=== PATIENT | female | born 1970 | race Caucasian/White ===

== ENCOUNTER 2016-09-26 22:56 | Observation (INO) | payer OTHER ==
[~2016-09-26] VITALS: Ht 154.9 cm; Wt 55.9 kg
[~2016-09-26 22:56] MED LIST: CIPRODEX OTIC7.5 ML BOTH EARS; CYANOCOBALAM1000 MCG PO; FOLIC ACID1 MG PO; LISINOPRIL5 MG PO; PANTOPRAZOLE SO40 MG PO; TESSALON PERLE100 MG PO; TRAMADOL HCL50 MG PO; TYLENOL REGULA325 MG PO; WARFARIN SODIUM2 MG PO; WARFARIN SODIUM5 MG PO
[2016-09-26 23:36] LABS: HEMATOCRIT 38.5 % (36.0-46.0); MCH 31.4 PG (29.0-34.0); MCHC 34.3 G/DL (30.0-36.0); MCV 91.7 FL (83-99); MEAN PLAT.VOLUME 12.3 uM^3 (9.5-12.4); PLATELET COUNT 120 K/uL (156-360); RBC DIS.WIDTH-CV 13.9 % (11.8-14.6); RBC DIS.WIDTH-SD 46.7 % (39-53); WHITE BLOOD COUNT 10.3 K/uL (4.1-10.2)
[2016-09-26 23:45] LABS: CHLORIDE 107 mEq/L (99-109); POTASSIUM 3.2 mEq/L (3.7-5.4); SODIUM 137 mEq/L (136-147)
[2016-09-26 23:46] LABS: GLUCOSE 102 mg/dL (70-99)
[2016-09-26 23:48] LABS: ANION GAP 8 MEQ/L (2-14)
[2016-09-26 23:50] LABS: GFR ESTIMATE (CALCULATED) > 59 mL/min/
[2016-09-27 02:22] LABS: UREA NITROGEN (BUN) 10 mg/dL (9-23)
[2016-09-27 06:10] VITALS: BP 158/86
[2016-09-27 07:17] VITALS: BP 176/105
[2016-09-27 10:47] LABS: INTER. NORMALIZED RATIO 3.2; PROTHROMBIN TIME 33.5 (9.2-11.2)
[2016-09-27 11:25] VITALS: BP 136/86
[2016-09-27] MEDS ORDERED: PROTONIX40 MG PO (15:07)
[2016-09-27 15:38] VITALS: BP 125/70
[2016-09-27 18:56] VITALS: BP 146/89
[2016-09-28 04:20] VITALS: BP 123/74
[2016-09-28 06:34] LABS: INTER. NORMALIZED RATIO 2.6; PROTHROMBIN TIME 26.9 (9.2-11.2)
[2016-09-28 07:19] VITALS: BP 119/67
[2016-09-28 11:30] VITALS: BP 134/72
[2016-09-28] MEDS ORDERED: FIORICET,ESG1 TABLET PO (15:39)
[2016-09-28] MEDS ORDERED: BACLOFEN10 MG PO (15:39)
== END 2016-09-28 16:23 | disposition home or self-care (01) ==
LOC: EME 22:56 → EDOF 09-27 04:00 → 5WEST 09-27 05:29
PROVIDERS: Internal Medicine
DX: G45.9 Transient cerebral ischemic attack, unspecified (principal); I69.351 Hemiplegia and hemiparesis following cerebral infarction affecting right dominant side; I69.328 Other speech and language deficits following cerebral infarction; I10 Essential (primary) hypertension; G43.909 Migraine, unspecified, not intractable, without status migrainosus; Z79.01 Long term (current) use of anticoagulants; F17.200 Nicotine dependence, unspecified, uncomplicated; M79.641 Pain in right hand; R51 Headache
CPT/HCPCS: 70450; 70551; 71020; 80048; 85027; 85610; 93005; 93880; 99281; 99285; G0378; G8978 GP CI; G8979 GP CH; J3010; J7030

== ENCOUNTER 2017-07-02 15:43 | Inpatient (IN) | payer OTHER ==
[~2017-07-02] VITALS: Ht 157.5 cm; Wt 53.0 kg
[~2017-07-02 15:43] MED LIST changes: +BACLOFEN10 MG PO; +FIORICET,ESG1 TABLET PO; +PROTONIX40 MG PO
[2017-07-02 17:11] LABS: HEMATOCRIT 24.1 % (36.0-46.0); HEMOGLOBIN 8.2 G/DL (11.9-15.5); MCH 32.4 PG (29.0-34.0); MCV 95.3 FL (83-99); PLATELET COUNT 58 K/uL (156-360); RBC DIS.WIDTH-CV 13.9 % (11.8-14.6); RBC DIS.WIDTH-SD 48.3 % (39-53); RED BLOOD COUNT 2.53 M/uL (3.80-5.20); WHITE BLOOD COUNT 8.6 K/uL (4.1-10.2)
[2017-07-02] MEDS ORDERED: XARELTO20 MG PO (17:16)
[2017-07-02 17:21] LABS: ALBUMIN 3.4 g/dL (3.2-4.8)
[2017-07-02 17:22] LABS: CHLORIDE 106 mEq/L (99-109); POTASSIUM 3.5 mEq/L (3.7-5.4); SODIUM 138 mEq/L (136-147)
[2017-07-02 17:24] LABS: GLUCOSE 95 mg/dL (70-99); TOTAL PROTEIN 6.6 g/dL (6.4-8.3)
[2017-07-02 17:26] LABS: TOTAL BILIRUBIN 0.4 mg/dL (0.0-1.0)
[2017-07-02 17:27] LABS: ALKALINE PHOSPHATASE 99 IU/L (3-129)
[2017-07-02 17:28] LABS: CREATININE 2.6 mg/dL (0.6-1.3)
[2017-07-02 17:29] LABS: AST (GOT) 19 IU/L (2-34); GFR ESTIMATE (CALCULATED) 21 mL/min/; UREA NITROGEN (BUN) 23 mg/dL (9-23)
[2017-07-02 17:31] LABS: ALT (GPT) 3 IU/L (3-49)
[2017-07-02 17:41] LABS: QUANTITATIVE HCG < 4.0 MIU/ML
[2017-07-02 17:50] LABS: APPEARANCE SL.HAZY ((CLEAR)); BILIRUBIN NEGATIVE; BLOOD LARGE; COLOR AMBER ((YELLOW)); GLUCOSE (STRIP) NEGATIVE; KETONES 5; LEUKOCYTES NEGATIVE; NITRITE NEGATIVE; PROTEIN (STRIP) >=500; SPECIFIC GRAVITY 1.019 (1.000-1.030); UROBILINOGEN 0.2 MG/DL (0.2-1.0)
[2017-07-02 17:54] LABS: INTER. NORMALIZED RATIO 1.4
[2017-07-02 17:57] LABS: PTT 77.7 SEC (25-37)
[2017-07-02 18:12] LABS: RED BLOOD CELLS TNTC /HPF (0-5); UCUL ADDED? YES
[2017-07-02] MEDS ORDERED: ADVIL200 MG PO (19:11)
[2017-07-02] MEDS ORDERED: TYLENOL EXTRA500 MG PO (19:11)
[2017-07-02] MEDS ORDERED: FOLIC ACID1 MG PO (19:11)
[2017-07-02 21:47] VITALS: BP 169/88
[2017-07-03] VITALS (9 sets, daily range): BP systolic 127–157; BP diastolic 69–95
[2017-07-03 06:44] LABS: HEMATOCRIT 20.6 % (36.0-46.0); MCH 32.1 PG (29.0-34.0); MCV 97.2 FL (83-99); RBC DIS.WIDTH-CV 13.9 % (11.8-14.6); RED BLOOD COUNT 2.12 M/uL (3.80-5.20)
[2017-07-03 06:45] LABS: HEMOGLOBIN 6.8 G/DL (11.9-15.5)
[2017-07-03 06:47] LABS: IMM.PLATELET FRACTION 13.4 (1-7); PLATELET COUNT 50 K/uL (156-360)
[2017-07-04] VITALS (18 sets, daily range): BP systolic 110–166; BP diastolic 70–92
[2017-07-04 01:09] LABS: ABS NEUTROPHIL COUNT 7.2; ANISOCYTOSIS 1+; BASOPHILS 0.9 %; EOSINOPHIL ABS CT 0.1; EOSINOPHILS 0.9 % (0-5.0); HELMET CELLS 1+; LYMPHOCYTES 12.6 % (15.0-45.0); MONOCYTES 1.8 % (0-9.0); PLAT.SUFFICIENCY DECREASED; POIKILOCYTOSIS 2+; POLYCHROMASIA 1+; SCHISTOCYTES 1+; SEG.NEUTROPHILS 83.8 % (46.0-76.0); TEAR DROP CELLS 1+
[2017-07-04 07:42] LABS: HEMATOCRIT 23.4 % (36.0-46.0); MCH 31.5 PG (29.0-34.0); MCHC 34.2 G/DL (30.0-36.0); RBC DIS.WIDTH-CV 15.1 % (11.8-14.6); RBC DIS.WIDTH-SD 51.1 % (39-53); RED BLOOD COUNT 2.54 M/uL (3.80-5.20); WHITE BLOOD COUNT 5.4 K/uL (4.1-10.2)
[2017-07-04 07:45] LABS: MCV 92.1 FL (83-99)
[2017-07-04 08:14] LABS: PLAT.SUFFICIENCY DECREASED; PLATELET COUNT 41 K/uL (156-360)
[2017-07-04 08:28] LABS: CHLORIDE 113 MEQ/L (99-109); CREATININE 2.4 MG/DL (0.6-1.3); GFR ESTIMATE (CALCULATED) 23 mL/min/; LACTATE DEHYDROGENASE 197 IU/L (20-246); SODIUM 139 MEQ/L (136-147); UREA NITROGEN (BUN) 16 mg/dL (9-23)
[2017-07-04 08:33] LABS: GLUCOSE 337 mg/dL (70-99)
[2017-07-04 08:47] LABS: FOLIC ACID (FOLATE) > 22.0 NG/ML (5.0-22.0)
[2017-07-05 03:38] VITALS: BP 151/85
[2017-07-05 08:35] VITALS: BP 155/81
[2017-07-05 10:51] LABS: BASOPHIL (%) 0.4 % (0-1); EOSINOPHIL (%) 1.7 % (0-5); EOSINOPHIL COUNT 0.1 K/uL (0-0.3); HEMOGLOBIN 8.3 G/DL (11.9-15.5); IMMATURE GRANULOCYTE (%) 0.2 % (0.0-0.7); LYMPHOCYTE (%) 20.9 % (15-42); MCH 31.3 PG (29.0-34.0); MCHC 34.6 G/DL (30.0-36.0); MCV 90.6 FL (83-99); MONOCYTE (%) 5.3 % (3-12); MONOCYTE COUNT 0.3 K/uL (0-0.8); NEUTROPHIL (%) 71.5 % (45-76); NEUTROPHIL COUNT 3.4 K/uL (1.8-6.4); RBC DIS.WIDTH-CV 15.2 % (11.8-14.6); RBC DIS.WIDTH-SD 49.8 % (39-53); RED BLOOD COUNT 2.65 M/uL (3.80-5.20); WHITE BLOOD COUNT 4.7 K/uL (4.1-10.2)
[2017-07-05 10:59] LABS: INTER. NORMALIZED RATIO 1.1
[2017-07-05 11:24] LABS: IMM.PLATELET FRACTION 10.1 (1-7); PLAT.SUFFICIENCY DECREASED; PLATELET COUNT 49 K/uL (156-360)
[2017-07-05 11:29] LABS: CHLORIDE 114 MEQ/L (99-109); POTASSIUM 3.5 MEQ/L (3.7-5.4); SODIUM 142 MEQ/L (136-147)
[2017-07-05 12:14] LABS: CREATININE 2.5 MG/DL (0.6-1.3); GFR ESTIMATE (CALCULATED) 22 mL/min/; GLUCOSE 81 mg/dL (70-99); UREA NITROGEN (BUN) 15 mg/dL (9-23)
[2017-07-05 15:58] VITALS: BP 146/81
[2017-07-05 19:44] VITALS: BP 148/95
[2017-07-05 23:36] VITALS: BP 158/82
[2017-07-06 06:56] LABS: INTER. NORMALIZED RATIO 1.2
[2017-07-06 06:59] LABS: BASOPHIL (%) 0.6 % (0-1); EOSINOPHIL (%) 2.1 % (0-5); EOSINOPHIL COUNT 0.1 K/uL (0-0.3); HEMATOCRIT 24.5 % (36.0-46.0); HEMOGLOBIN 8.2 G/DL (11.9-15.5); IMMATURE GRANULOCYTE (%) 0.4 % (0.0-0.7); LYMPHOCYTE (%) 19.7 % (15-42); MCH 31.1 PG (29.0-34.0); MCHC 33.5 G/DL (30.0-36.0); MCV 92.8 FL (83-99); MONOCYTE (%) 4.7 % (3-12); MONOCYTE COUNT 0.3 K/uL (0-0.8); NEUTROPHIL (%) 72.5 % (45-76); NEUTROPHIL COUNT 3.8 K/uL (1.8-6.4); PLATELET COUNT 51 K/uL (156-360); RBC DIS.WIDTH-CV 15.2 % (11.8-14.6); RBC DIS.WIDTH-SD 51.7 % (39-53); RED BLOOD COUNT 2.64 M/uL (3.80-5.20); WHITE BLOOD COUNT 5.3 K/uL (4.1-10.2)
[2017-07-06 07:20] LABS: CHLORIDE 119 MEQ/L (99-109); CREATININE 2.7 MG/DL (0.6-1.3); GFR ESTIMATE (CALCULATED) 20 mL/min/; GLUCOSE 100 mg/dL (70-99); POTASSIUM 3.6 MEQ/L (3.7-5.4); SODIUM 143 MEQ/L (136-147); UREA NITROGEN (BUN) 18 mg/dL (9-23)
[2017-07-06 07:23] VITALS: BP 145/82
[2017-07-06 15:34] VITALS: BP 143/82
[2017-07-06 20:00] VITALS: BP 138/78
[2017-07-06 22:49] VITALS: BP 130/69
[2017-07-07] VITALS (10 sets, daily range): BP systolic 103–187; BP diastolic 55–110
[2017-07-07 08:09] LABS: INTER. NORMALIZED RATIO 1.4
[2017-07-07 08:10] LABS: HEMATOCRIT 24.5 % (36.0-46.0); HEMOGLOBIN 8.1 G/DL (11.9-15.5); MCH 30.8 PG (29.0-34.0); MCHC 33.1 G/DL (30.0-36.0); MCV 93.2 FL (83-99); PLATELET COUNT 52 K/uL (156-360); RBC DIS.WIDTH-CV 15.3 % (11.8-14.6); RBC DIS.WIDTH-SD 51.4 % (39-53); RED BLOOD COUNT 2.63 M/uL (3.80-5.20); WHITE BLOOD COUNT 5.6 K/uL (4.1-10.2)
[2017-07-07 08:28] LABS: CHLORIDE 115 MEQ/L (99-109); CREATININE 2.5 MG/DL (0.6-1.3); GFR ESTIMATE (CALCULATED) 22 mL/min/; GLUCOSE 96 mg/dL (70-99); POTASSIUM 3.6 MEQ/L (3.7-5.4); SODIUM 142 MEQ/L (136-147); UREA NITROGEN (BUN) 18 mg/dL (9-23)
[2017-07-07 16:11] LABS: C4 COMPLEMENT 9 MG/DL (10-40)
[2017-07-08 00:34] VITALS: BP 150/78
[2017-07-08 04:20] VITALS: BP 162/97
[2017-07-08 06:33] LABS: HEMATOCRIT 30.9 % (36.0-46.0); MCH 30.8 PG (29.0-34.0); MCV 90.6 FL (83-99); PLATELET COUNT 60 K/uL (156-360); RBC DIS.WIDTH-CV 15.1 % (11.8-14.6); RBC DIS.WIDTH-SD 49.3 % (39-53); WHITE BLOOD COUNT 10.3 K/uL (4.1-10.2)
[2017-07-08 06:38] LABS: HEMOGLOBIN 10.5 G/DL (11.9-15.5); RED BLOOD COUNT 3.41 M/uL (3.80-5.20)
[2017-07-08 06:39] LABS: INTER. NORMALIZED RATIO 2.1
[2017-07-08 06:50] LABS: CHLORIDE 114 MEQ/L (99-109); CREATININE 2.4 MG/DL (0.6-1.3); GFR ESTIMATE (CALCULATED) 23 mL/min/; GLUCOSE 94 mg/dL (70-99); POTASSIUM 3.5 MEQ/L (3.7-5.4); SODIUM 140 MEQ/L (136-147); UREA NITROGEN (BUN) 17 mg/dL (9-23)
[2017-07-08 07:52] VITALS: BP 143/71
[2017-07-08] MEDS ORDERED: BENADRYL25 MG PO (08:09)
[2017-07-08] MEDS ORDERED: COUMADIN1 MG PO (08:10)
[2017-07-08] MEDS ORDERED: TRAMADOL HCL50 MG PO (08:13)
[2017-07-08 12:38] LABS: HEPATITIS B SURFACE ANTIGEN Nonreactive; HEPATITIS C ANTIBODY Nonreactive
[2017-07-08 12:39] LABS: ANTI-HEPATITIS A VIRUS (IGM) Nonreactive; ANTI-HEPATITIS B CORE (IGM) Nonreactive
[2017-07-08 16:35] VITALS: BP 132/84
[2017-07-08 23:39] VITALS: BP 144/92
[2017-07-09 06:27] LABS: INTER. NORMALIZED RATIO 2.7
[2017-07-09 06:43] LABS: GLOMERULAR BASEMENT MEMB ABY+ <1.0 AI (<1.0); MYELOPEROXIDASE ANTIBODY (MPO) <1.0 AI (<1.0); PROTEINASE-3 ANTIBODY+ <1.0 AI (<1.0)
[2017-07-09 09:24] VITALS: BP 135/83
[2017-07-09 14:03] LABS: UR CREATININE CONCENTRATION 57.6 MG/DL
[2017-07-09 15:42] VITALS: BP 169/92
[2017-07-10] VITALS: BP 177/86
[2017-07-10 06:51] LABS: INTER. NORMALIZED RATIO 1.8
[2017-07-10 07:11] LABS: BASOPHIL (%) 0.5 % (0-1); EOSINOPHIL (%) 2.5 % (0-5); EOSINOPHIL COUNT 0.2 K/uL (0-0.3); HEMATOCRIT 28.3 % (36.0-46.0); HEMOGLOBIN 9.4 G/DL (11.9-15.5); IMMATURE GRANULOCYTE (%) 0.2 % (0.0-0.7); LYMPHOCYTE (%) 16.2 % (15-42); MCH 30.6 PG (29.0-34.0); MCHC 33.2 G/DL (30.0-36.0); MCV 92.2 FL (83-99); MONOCYTE (%) 5.2 % (3-12); MONOCYTE COUNT 0.3 K/uL (0-0.8); NEUTROPHIL (%) 75.4 % (45-76); NEUTROPHIL COUNT 4.5 K/uL (1.8-6.4); PLATELET COUNT 64 K/uL (156-360); RBC DIS.WIDTH-CV 15.3 % (11.8-14.6); RBC DIS.WIDTH-SD 50.8 % (39-53); RED BLOOD COUNT 3.07 M/uL (3.80-5.20); WHITE BLOOD COUNT 5.9 K/uL (4.1-10.2)
[2017-07-10 07:14] LABS: ALBUMIN 2.7 G/DL (3.2-4.8); ALKALINE PHOSPHATASE 74 IU/L (3-129); ALT (GPT) 8 IU/L (3-49); AST (GOT) 23 IU/L (2-34); CHLORIDE 114 MEQ/L (99-109); CREATININE 2.3 MG/DL (0.6-1.3); GFR ESTIMATE (CALCULATED) 24 mL/min/; GLUCOSE 111 mg/dL (70-99); POTASSIUM 3.3 MEQ/L (3.7-5.4); SODIUM 142 MEQ/L (136-147); TOTAL BILIRUBIN 0.3 MG/DL (0.0-1.0); UREA NITROGEN (BUN) 16 mg/dL (9-23)
[2017-07-10 07:58] VITALS: BP 147/78
[2017-07-10 20:33] VITALS: BP 148/79
[2017-07-10 23:20] VITALS: BP 138/72
[2017-07-11 04:26] LABS: BASOPHIL (%) 0.7 % (0-1); EOSINOPHIL (%) 2.4 % (0-5); EOSINOPHIL COUNT 0.1 K/uL (0-0.3); HEMATOCRIT 29.2 % (36.0-46.0); HEMOGLOBIN 9.9 G/DL (11.9-15.5); IMMATURE GRANULOCYTE (%) 0.2 % (0.0-0.7); LYMPHOCYTE (%) 26.4 % (15-42); LYMPHOCYTE COUNT 1.4 K/uL (1.0-2.8); MCH 30.7 PG (29.0-34.0); MCHC 33.9 G/DL (30.0-36.0); MCV 90.7 FL (83-99); MONOCYTE (%) 5.8 % (3-12); MONOCYTE COUNT 0.3 K/uL (0-0.8); NEUTROPHIL (%) 64.5 % (45-76); NEUTROPHIL COUNT 3.5 K/uL (1.8-6.4); PLATELET COUNT 66 K/uL (156-360); RBC DIS.WIDTH-CV 15.1 % (11.8-14.6); RBC DIS.WIDTH-SD 49.7 % (39-53); RED BLOOD COUNT 3.22 M/uL (3.80-5.20); WHITE BLOOD COUNT 5.4 K/uL (4.1-10.2)
[2017-07-11 04:47] LABS: INTER. NORMALIZED RATIO 1.4
[2017-07-11 04:53] LABS: ALBUMIN 2.9 g/dL (3.2-4.8)
[2017-07-11 04:54] LABS: MAGNESIUM 1.8 mg/dL (1.3-2.7)
[2017-07-11 04:56] LABS: TOTAL PROTEIN 5.5 g/dL (6.4-8.3)
[2017-07-11 04:57] LABS: GLUCOSE 79 mg/dL (70-99)
[2017-07-11 04:58] LABS: TOTAL BILIRUBIN 0.3 mg/dL (0.0-1.0)
[2017-07-11 04:59] LABS: ALKALINE PHOSPHATASE 96 IU/L (3-129); PHOSPHORUS 4.5 mg/dL (2.5-4.9)
[2017-07-11 05:00] LABS: CREATININE 2.3 mg/dL (0.6-1.3); GFR ESTIMATE (CALCULATED) 24 mL/min/
[2017-07-11 05:01] LABS: AST (GOT) 37 IU/L (2-34); UREA NITROGEN (BUN) 23 mg/dL (9-23)
[2017-07-11 05:02] LABS: ALT (GPT) 14 IU/L (3-49)
[2017-07-11 05:27] LABS: CHLORIDE 113 mEq/L (99-109); POTASSIUM 4.2 mEq/L (3.7-5.4); SODIUM 142 mEq/L (136-147)
[2017-07-11 08:30] VITALS: BP 152/76
[2017-07-11 13:00] VITALS: BP 172/92
[2017-07-11 14:10] VITALS: BP 154/90
[2017-07-11 17:45] VITALS: BP 138/86
[2017-07-11 23:30] VITALS: BP 148/69
[2017-07-12 06:59] LABS: HEMOGLOBIN 9.2 G/DL (11.9-15.5); MCH 30.9 PG (29.0-34.0); MCHC 32.9 G/DL (30.0-36.0); PLATELET COUNT 64 K/uL (156-360); RBC DIS.WIDTH-CV 15.5 % (11.8-14.6); RBC DIS.WIDTH-SD 52.4 % (39-53); RED BLOOD COUNT 2.98 M/uL (3.80-5.20); WHITE BLOOD COUNT 5.1 K/uL (4.1-10.2)
[2017-07-12 07:01] LABS: INTER. NORMALIZED RATIO 1.7
[2017-07-12 07:04] LABS: PTT 65.8 SEC (25-37)
[2017-07-12 07:39] VITALS: BP 129/69
[2017-07-12 08:11] LABS: ALBUMIN 2.9 G/DL (3.2-4.8); ALKALINE PHOSPHATASE 82 IU/L (3-129); CHLORIDE 112 MEQ/L (99-109); CREATININE 2.2 MG/DL (0.6-1.3); GFR ESTIMATE (CALCULATED) 26 mL/min/; SODIUM 143 MEQ/L (136-147); TOTAL BILIRUBIN 0.3 MG/DL (0.0-1.0); TOTAL PROTEIN 5.1 G/DL (6.4-8.3); UREA NITROGEN (BUN) 22 mg/dL (9-23)
[2017-07-12 08:17] LABS: ALT (GPT) 16 IU/L (3-49); AST (GOT) 38 IU/L (2-34); GLUCOSE 115 mg/dL (70-99)
[2017-07-12 16:15] VITALS: BP 144/85
[2017-07-12 20:07] VITALS: BP 158/94
[2017-07-12 23:57] VITALS: BP 162/67
[2017-07-13 03:31] VITALS: BP 136/70
[2017-07-13 06:07] LABS: HEMATOCRIT 28.7 % (36.0-46.0); HEMOGLOBIN 9.5 G/DL (11.9-15.5); MCH 31.5 PG (29.0-34.0); MCHC 33.1 G/DL (30.0-36.0); PLATELET COUNT 72 K/uL (156-360); RBC DIS.WIDTH-CV 15.6 % (11.8-14.6); RBC DIS.WIDTH-SD 53.3 % (39-53); RED BLOOD COUNT 3.02 M/uL (3.80-5.20); WHITE BLOOD COUNT 5.5 K/uL (4.1-10.2)
[2017-07-13 06:16] LABS: INTER. NORMALIZED RATIO 2.3
[2017-07-13 06:19] LABS: PTT 64.2 SEC (25-37)
[2017-07-13 06:46] LABS: ALBUMIN 2.8 G/DL (3.2-4.8); ALKALINE PHOSPHATASE 81 IU/L (3-129); ALT (GPT) 15 IU/L (3-49); AST (GOT) 31 IU/L (2-34); CHLORIDE 110 MEQ/L (99-109); CREATININE 2.3 MG/DL (0.6-1.3); GFR ESTIMATE (CALCULATED) 24 mL/min/; POTASSIUM 4.6 MEQ/L (3.7-5.4); SODIUM 139 MEQ/L (136-147); TOTAL BILIRUBIN 0.3 MG/DL (0.0-1.0); TOTAL PROTEIN 5.3 G/DL (6.4-8.3); UREA NITROGEN (BUN) 23 mg/dL (9-23)
[2017-07-13 06:49] LABS: GLUCOSE 86 mg/dL (70-99)
[2017-07-13 10:15] VITALS: BP 145/63
[2017-07-13 12:26] VITALS: BP 135/82
[2017-07-13 17:06] VITALS: BP 142/72
[2017-07-14 00:17] VITALS: BP 135/66
[2017-07-14 04:00] VITALS: BP 133/72
[2017-07-14 06:51] LABS: INTER. NORMALIZED RATIO 2.8
[2017-07-14 07:09] LABS: CHLORIDE 109 MEQ/L (99-109); CREATININE 2.3 MG/DL (0.6-1.3); GFR ESTIMATE (CALCULATED) 24 mL/min/; GLUCOSE 97 mg/dL (70-99); POTASSIUM 4.6 MEQ/L (3.7-5.4); SODIUM 139 MEQ/L (136-147); UREA NITROGEN (BUN) 28 mg/dL (9-23)
[2017-07-14 07:49] VITALS: BP 139/77
[2017-07-14 15:24] VITALS: BP 166/98
[2017-07-14] MEDS ORDERED: JANTOVEN4 MG PO (15:26)
== END 2017-07-14 16:31 | disposition home or self-care (01) | DRG 812 ==
LOC: EME 15:43 → EDOF 19:28 → 2EAST 19:28 → ENRESERV 19:29 → 2EAST 21:32
PROVIDERS: Family Medicine; Internal Medicine; Internal Medicine Hematology & Oncology; Internal Medicine Nephrology; Nurse Practitioner Family
PROC: 30233N1 Transfusion of Nonautologous Red Blood Cells into Peripheral Vein, Percutaneous Approach (ICD-10-PCS; principal; 2017-07-03)
PROC: 30233R1 Transfusion of Nonautologous Platelets into Peripheral Vein, Percutaneous Approach (ICD-10-PCS; 2017-07-04)
DX: D50.0 Iron deficiency anemia secondary to blood loss (chronic) (principal); N17.9 Acute kidney failure, unspecified; E87.2 Acidosis; D68.61 Antiphospholipid syndrome; F17.210 Nicotine dependence, cigarettes, uncomplicated; I69.351 Hemiplegia and hemiparesis following cerebral infarction affecting right dominant side; I69.320 Aphasia following cerebral infarction; N92.1 Excessive and frequent menstruation with irregular cycle; D25.9 Leiomyoma of uterus, unspecified; E87.6 Hypokalemia; D69.6 Thrombocytopenia, unspecified; I12.9 Hypertensive chronic kidney disease with stage 1 through stage 4 chronic kidney disease, or unspecified chronic kidney disease; N18.3 Chronic kidney disease, stage 3 (moderate); F32.9 Major depressive disorder, single episode, unspecified; M24.541 Contracture, right hand; K21.9 Gastro-esophageal reflux disease without esophagitis; K92.2 Gastrointestinal hemorrhage, unspecified
CPT/HCPCS: 70450; 74150; 74176; 76856; 80048; 80053; 80074; 81003; 81050; 82570; 82607; 82746; 83520 90; 83615; 83735; 84100; 84156; 84702; 85007; 85025; 85027; 85610; 85730; 86021 90; 86038; 86160; 86162 90; 86235; 86850; 86860; 86870; 86880; 86885; 86900; 86901; 86904; 86905; 86906; 86920; 87086; 93970; 99281; 99284; C1753; J0360; J0696; J1200; J1644; J2405; J7030; J7042; P9016; P9035

== ENCOUNTER 2017-10-12 12:49 | Emergency (ER) | payer OTHER ==
[~2017-10-12] VITALS: Ht 157.5 cm; Wt 51.2 kg
[~2017-10-12 12:49] MED LIST changes: +ADVIL200 MG PO; +BENADRYL25 MG PO; +COUMADIN1 MG PO; +JANTOVEN4 MG PO; +TYLENOL EXTRA500 MG PO; +XARELTO20 MG PO
[2017-10-12 13:51] LABS: BASOPHIL (%) 0.3 % (0-1); EOSINOPHIL (%) 0.7 % (0-5); EOSINOPHIL COUNT 0.1 K/uL (0-0.3); HEMATOCRIT 35.7 % (36.0-46.0); HEMOGLOBIN 12.4 G/DL (11.9-15.5); IMMATURE GRANULOCYTE (%) 0.4 % (0.0-0.7); LYMPHOCYTE (%) 9.6 % (15-42); LYMPHOCYTE COUNT 0.9 K/uL (1.0-2.8); MCH 31.8 PG (29.0-34.0); MCHC 34.7 G/DL (30.0-36.0); MONOCYTE (%) 4.2 % (3-12); MONOCYTE COUNT 0.4 K/uL (0-0.8); NEUTROPHIL (%) 84.8 % (45-76); NEUTROPHIL COUNT 8.1 K/uL (1.8-6.4); PLATELET COUNT 117 K/uL (156-360); RBC DIS.WIDTH-CV 14.2 % (11.8-14.6); RBC DIS.WIDTH-SD 47.6 % (39-53); WHITE BLOOD COUNT 9.6 K/uL (4.1-10.2)
[2017-10-12 13:55] LABS: MCV 91.5 FL (83-99)
[2017-10-12 14:01] LABS: ALBUMIN 3.7 g/dL (3.2-4.8); CHLORIDE 106 mEq/L (99-109); POTASSIUM 3.4 mEq/L (3.7-5.4); SODIUM 138 mEq/L (136-147)
[2017-10-12 14:04] LABS: GLUCOSE 100 mg/dL (70-99); TOTAL PROTEIN 7.1 g/dL (6.4-8.3)
[2017-10-12 14:05] LABS: TOTAL BILIRUBIN 0.4 mg/dL (0.0-1.0)
[2017-10-12 14:06] LABS: SERUM ETHYL ALCOHOL < 10 mg/dL
[2017-10-12 14:07] LABS: ALKALINE PHOSPHATASE 87 IU/L (3-129); CREATININE 1.2 mg/dL (0.6-1.3); GFR ESTIMATE (CALCULATED) 51 mL/min/
[2017-10-12 14:08] LABS: UREA NITROGEN (BUN) 18 mg/dL (9-23)
[2017-10-12 14:09] LABS: AST (GOT) 24 IU/L (2-34)
[2017-10-12 14:10] LABS: ALT (GPT) 6 IU/L (3-49)
[2017-10-12 16:59] LABS: APPEARANCE CLEAR ((CLEAR)); BILIRUBIN NEGATIVE; BLOOD SMALL; COLOR YELLOW ((YELLOW)); GLUCOSE (STRIP) NEGATIVE; KETONES NEGATIVE; LEUKOCYTES NEGATIVE; NITRITE NEGATIVE; PROTEIN (STRIP) 100; SPECIFIC GRAVITY 1.013 (1.000-1.030); UROBILINOGEN 0.2 MG/DL (0.2-1.0)
[2017-10-12 17:06] LABS: BACTERIA RARE /HPF; EPITHELIAL CELLS RARE /HPF; MUCUS TRACE /LPF; RED BLOOD CELLS 0-5 /HPF (0-5); UCUL ADDED? NO; WHITE BLOOD CELLS 0-5 /HPF (0-5)
[2017-10-12 17:18] LABS: THC CANNABINOIDS PRESUMPTIVE POSITIVE (50 ng/mL)
[2017-10-12 17:19] LABS: AMPHETAMINE NEGATIVE (500 ng/mL); BARBITURATES NEGATIVE (200 ng/mL); BENZODIAZEPINES NEGATIVE (150 ng/mL); BUPRENORPHINE NEGATIVE (10 ng/mL); COCAINE NEGATIVE (150 ng/mL); METHADONE NEGATIVE (200 ng/mL); METHAMPHETAMINE NEGATIVE (500 ng/mL); OPIATES (MORPHINE) NEGATIVE (100 ng/mL); OXYCODONE NEGATIVE (100 ng/mL); PHENCYCLIDINE NEGATIVE (25 ng/mL); PROPOXYPHENE NEGATIVE (300 ng/mL); TRICYCLIC ANTIDEPRESSANTS NEGATIVE (300 ng/mL)
[2017-10-12 18:15] VITALS: BP 150/103
== END 2017-10-12 18:20 | disposition home or self-care (01) ==
LOC: EME 12:49
PROVIDERS: Physician Assistant
DX: R56.9 Unspecified convulsions (principal); I69.328 Other speech and language deficits following cerebral infarction; I69.951 Hemiplegia and hemiparesis following unspecified cerebrovascular disease affecting right dominant side; F17.200 Nicotine dependence, unspecified, uncomplicated; Z79.01 Long term (current) use of anticoagulants; Z88.6 Allergy status to analgesic agent
CPT/HCPCS: 70450; 71046; 80053; 81003; 84999; 85025; 85610; 90832; 93005; 99281; 99284; G0480